=== PATIENT | male | born 1990 | race Caucasian/White ===

== ENCOUNTER 2023-10-25 20:12 | Emergency (ER) | payer MEDICAID ==
[~2023-10-25] VITALS: Ht 177.8 cm; Wt 79.5 kg
[2023-10-25 20:17] VITALS: BP 120/75; PULSE 104; TEMP 98.5; O2SAT 99
[2023-10-25] MEDS: famotidine/PF 10 mg/ml inj IV ONE (20:42)
[2023-10-25] MEDS: dexamethasone sod phosphate 10mg/ml inj IV STA (20:42)
[2023-10-25] MEDS: epiNEPHrine 1 mg/ml inj IM STA (20:42)
[2023-10-25] MEDS: diphenhydrAMINE 50 mg/ml inj IV ONE ×2 (20:43→21:29)
[2023-10-25 21:14] VITALS: RESP 18
[2023-10-25] MEDS ORDERED: FAMO20TA8 PO (22:02)
[2023-10-25] MEDS ORDERED: DIPH25CA83 PO (22:02)
[2023-10-25] MEDS ORDERED: PRED20TA PO (22:02)
[2023-10-25] MEDS ORDERED: EPIN0.3P3 IM (22:02)
== END 2023-10-25 23:30 | disposition home or self-care (01) ==
LOC: ER 20:13
DX: T78.49XA Other allergy, initial encounter (principal); Z79.899 Other long term (current) drug therapy; X58.XXXA Exposure to other specified factors, initial encounter
CPT/HCPCS: 96372; 96374; 96375; 99284; J0171; J1100; J1200; J3490

== ENCOUNTER 2023-12-22 20:01 | Emergency (ER) | payer MEDICAID ==
[~2023-12-22] VITALS: Ht 175.3 cm; Wt 75.4 kg
[~2023-12-22 20:01] MED LIST: DIPH25CA83 PO; EPIN0.3P3 IM; FAMO20TA8 PO
[2023-12-22 20:06] VITALS: TEMP 97.7
[2023-12-22] MEDS: epiNEPHrine 1 mg/ml inj IM STA (20:17)
[2023-12-22] MEDS: diphenhydrAMINE 50 mg/ml inj IV ONE (20:18)
[2023-12-22] MEDS: famotidine/PF 10 mg/ml inj IV ONE (20:18)
[2023-12-22] MEDS: methylPREDNISolone sod succ 125mg/2ml vial IV ONE (20:21)
[2023-12-22 20:31] LABS: BASOPHILS % (AUTO) 0.4 % (0-1); EOSINOPHILS # (AUTO) 0.1 X10'3 (0-0.9); EOSINOPHILS % (AUTO) 1.6 % (0-6); HEMATOCRIT 44.7 % (42.0-52.0); HEMOGLOBIN 15.1 g/dl (14.0-17.9); LYMPHOCYTES % (AUTO) 29.5 % (21-51); MEAN CORPUSCULAR HGB CONC 33.9 g/dL (33.0-36.5); MEAN CORPUSCULAR VOLUME 88.7 FL (78-98); MEAN PLATELET VOLUME 8.3 FL (7.4-10.4); MONOCYTES # (AUTO) 0.4 X10'3 (0-0.9); MONOCYTES % (AUTO) 6.3 % (2-12); NEUTROPHILS # (AUTO) 4.2 X10'3 (1.8-7.7); NEUTROPHILS % (AUTO) 62.2 % (42-75); PLATELET COUNT 190 X10'3 (140-440); RED BLOOD COUNT 5.04 X10'6 (4.70-6.10); RED CELL DISTRIBUTION WIDTH 14.1 % (11.5-14.5); WHITE BLOOD COUNT 6.7 X10'3 (4.5-11.0)
[2023-12-22] MEDS: tranexamic acid inj. 1,000 MG in normal saline 100ml IV soln 90 ML IV ONE ×2 (20:32→21:47)
[2023-12-22] MEDS: normal saline 1000ml 1,000 ML IV ONE (20:32)
[2023-12-22 20:39] LABS: ALBUMIN 3.7 G/DL (3.4-5.0); ANION GAP 7 (8-16); BLOOD UREA NITROGEN 13 MG/DL (7-18); BUN/CREATININE RATIO 14.6 (10.0-20.0); CALCIUM 8.7 MG/DL (8.5-10.1); CHLORIDE 103 MMOL/L (99-107); CREATININE 0.89 MG/DL (0.60-1.10); GLUCOSE 89 MG/DL (70-104); POTASSIUM 3.9 MMOL/L (3.5-5.1); SODIUM 140 MMOL/L (135-145); TOTAL CARBON DIOXIDE 29.9 MMOL/L (24-32); eCRCL 128 ML/MIN; eGFR > 90 ML/MIN
[2023-12-22 20:40] LABS: PROTHROMBIN TIME 10.6 SECONDS (9.0-12.0)
[2023-12-22] MEDS ORDERED: CEPH-585 PO (22:02)
[2023-12-22] MEDS: cephalexin 250mg capsule PO ONE (22:09)
[2023-12-23 02:04] VITALS: BP 117/85; PULSE 92; RESP 18; O2SAT 98
== END 2023-12-22 23:10 | disposition home or self-care (01) ==
LOC: ER 20:02
DX: T78.3XXA Angioneurotic edema, initial encounter (principal); Z79.2 Long term (current) use of antibiotics; Z79.899 Other long term (current) drug therapy; Y92.89 Other specified places as the place of occurrence of the external cause
CPT/HCPCS: 36415; 73090; 80048; 85025; 85610; 96365; 96366; 96372; 96375; 99291; J0171; J1200; J2930; J3490; J7030; 99285

== ENCOUNTER 2023-12-24 17:44 | Emergency (ER) | payer MEDICAID ==
[~2023-12-24] VITALS: Ht 177.8 cm; Wt 79.5 kg
[~2023-12-24 17:44] MED LIST changes: +CEPH-585 PO
[2023-12-24 17:49] VITALS: BP 142/90; PULSE 101; RESP 18; TEMP 97.8; O2SAT 98
[2023-12-24] MEDS ORDERED: HYDR-3965 PO (18:03)
== END 2023-12-24 18:32 | disposition home or self-care (01) ==
LOC: ER 17:45
DX: S57.82XA Crushing injury of left forearm, initial encounter (principal); Z88.6 Allergy status to analgesic agent; Z79.2 Long term (current) use of antibiotics; Z79.899 Other long term (current) drug therapy; X58.XXXA Exposure to other specified factors, initial encounter; Y93.89 Activity, other specified; Y92.89 Other specified places as the place of occurrence of the external cause; Y99.8 Other external cause status
CPT/HCPCS: 29125; 99283; A4565

== ENCOUNTER 2023-12-27 18:57 | Emergency (ER) | payer MEDICAID ==
[~2023-12-27] VITALS: Ht 177.8 cm; Wt 80.0 kg
[~2023-12-27 18:57] MED LIST changes: +HYDR-3965 PO
[2023-12-27] MEDS ORDERED: SULF1TAB48 PO (19:17)
[2023-12-27] MEDS ORDERED: HYDR-3965 PO (19:17)
[2023-12-27] MEDS: CefTRIAXone 1000mg IM Kit (w/lidocaine diluent) IM ONE (19:47)
[2023-12-27] MEDS: HYDROcodone/acetaminophen 5mg/325mg tablet PO ONE (19:47)
[2023-12-27 20:05] VITALS: BP 132/86; PULSE 89; RESP 17; TEMP 99; O2SAT 98
== END 2023-12-27 20:08 | disposition home or self-care (01) ==
LOC: ER 18:58
DX: L03.116 Cellulitis of left lower limb (principal); M79.605 Pain in left leg; Z88.6 Allergy status to analgesic agent; Z79.899 Other long term (current) drug therapy
CPT/HCPCS: 96372; 99283; J0696